=== PATIENT | male | born 1955 | race Caucasian/White ===

== ENCOUNTER 2018-11-30 13:08 | Outpatient (CLI) | payer OTHER ==
--- NOTE | 2018-12-02 02:37 | XRAY Report ---
Reason: CHEST PAIN, UNSPECIFIED Procedure Date: 11/30/2018 Accession Number: [id number] / [id number] Procedure: XRS - Chest 2 View X-Ray CPT Code: 91774 FULL RESULT: EXAM: CHEST RADIOGRAPHY EXAM DATE: 11/30/2018 01:21 PM. CLINICAL HISTORY: 2 episodes of left-sided chest pain that brought him to the floor. Unable to breathe. COMPARISON: None. TECHNIQUE: 2 views. A total of 3 exposures are provided for review. FINDINGS: Lungs/Pleura: The lungs are clear. No pneumothorax or pleural effusion. Mediastinum: Heart and mediastinal contours are within normal limits. Other: Multilevel generative change of the spine. IMPRESSION: No evidence of acute cardiopulmonary disease. RADIA
== END 2018-11-30 13:09 | disposition home or self-care (01) ==
LOC: DI.S 13:08
PROVIDERS: ATTEND Physician Assistant
DX: R07.9 Chest pain, unspecified (principal)
CPT/HCPCS: 36415; 71046; 85379; 93005

== ENCOUNTER 2018-11-30 15:26 | Outpatient (CLI) | payer OTHER | END 2018-11-30 15:27 | disposition home or self-care (01) | LOC: LAB 15:26 | PROVIDERS: ATTEND Physician Assistant | DX: R07.9 Chest pain, unspecified (principal) | CPT/HCPCS: 36415; 85379; 93005 ==

== ENCOUNTER 2021-08-05 13:43 | Outpatient (CLI) | payer MEDICARE ==
[2021-08-05] MEDS ORDERED: DIATR MEGLU/DIATRIZOATE SODIUM 120 ML BOTTLE PO ONE (15:14)
--- NOTE | 2021-08-05 17:23 | CT Report ---
PROCEDURE: Abdomen/Pelvis WO INDICATIONS: Left side abd pain TECHNIQUE: Noncontrast 5 mm thick sections acquired from the diaphragms to the symphysis. 5 mm coronal and sagi ttal reformats were then performed. For radiation dose reduction, the following was used: automated exposure control, adjustment of mA and/or kV according to patient size. COMPARISON: None. FINDINGS: Image quality: Excellent. ABDOMEN: Lung bases: 3 mm left lower lobe nodule series 4 image 11 is present. No priors are available for [employer] parison. Heart size is normal. Solid organs: Liver and spleen are normal in size. Gallbladder is unremarkable. Pancreas is normal in contours. No adrenal nodules. Kidneys are normal in size, without hydronephrosis or nephrolithi asis. Left renal parapelvic cysts are present. Peritoneum and bowel: Unenhanced bowel loops are nonobstructed. There is minimal appearance of thick ened small bowel loops within the left hemiabdomen. No free fluid or air. Moderate scattered stool. Nodes and vessels: No retroperitoneal or mesenteric adenopathy by size criteria. Aorta and inferior vena cava are normal in caliber. Miscellaneous: No ventral hernias. PELVIS: Genitourinary: Bladder wall thickness is normal. Miscellaneous: No inguinal hernias or adenopathy. Bones: No suspicious bony lesions. No vertebral body compression fractures. There is a left firmware engineer ior lateral 11th rib fracture. IMPRESSION: Minimal appearance of scattered thickened small bowel loops within the left hemiabdomen. This is over all nonspecific and can be related to enteritis. Subacute appearing left posterior lateral 11th rib fracture. Reviewed by: Olena Lipscomb MD on 08/05/2021 5:21 PM PDT Approved by: Olena Lipscomb MD on 08/05/2021 5:21 PM PDT Station ID: [id number]
== END 2021-08-05 13:44 | disposition home or self-care (01) ==
LOC: DI 13:43
PROVIDERS: ATTEND Internal Medicine
DX: S22.32XA Fracture of one rib, left side, initial encounter for closed fracture (principal); R10.9 Unspecified abdominal pain
CPT/HCPCS: 74176; Q9963

== ENCOUNTER 2022-01-08 08:00 | Outpatient (CLI) | payer MEDICARE, OTHER ==
--- NOTE | 2022-01-08 16:26 | XRAY Report ---
PROCEDURE: Chest 2 View X-Ray INDICATIONS: LEFT CHEST PAIN TECHNIQUE: 2 view(s) of the chest. COMPARISON: 12/01/2015. FINDINGS: Surgical changes and devices: None. Lungs and pleura: No pleural effusions or pneumothorax. Lungs are clear. Mediastinum: Mediastinal contours are normal. Heart size is normal. Bones and chest wall: No suspicious bony abnormalities. Soft tissues appear unremarkable. IMPRESSION: No acute cardiopulmonary pathology. Reviewed by: Jairo Solorio MD on 01/08/2022 4:25 PM PDT Approved by: Jairo Solorio MD on 01/08/2022 4:25 PM PDT Station ID: [id number]
== END 2022-01-08 08:01 | disposition home or self-care (01) ==
LOC: DI.S 08:00
PROVIDERS: ATTEND Physician Assistant
DX: R07.81 Pleurodynia (principal); Z87.81 Personal history of (healed) traumatic fracture

== ENCOUNTER 2022-06-02 12:35 | Outpatient (CLI) | payer MEDICARE, OTHER ==
--- NOTE | 2022-06-02 13:32 | XRAY Report ---
PROCEDURE: Lumbar Spine 2 View INDICATIONS: PAIN IN LOW BACK AND TIBIA TECHNIQUE: 3 views of the lumbar spine were acquired. COMPARISON: None. FINDINGS: Bones: 5 [id number] vertebrae are present. There is normal bony alignment. No vertebral body compression fractures. No suspicious bony lesions. There is some mild degenerative disc disease present L2-L3. Soft tissues: Overlying bowel gas pattern is normal. No suspicious soft tissue calcifications. IMPRESSION: 1. No evidence for acute osseous abnormality involving the lumbar spine. 2. Mild degenerative disc disease present L2-L3. Reviewed by: Juan Carlos Albert MD on 06/02/2022 1:31 PM PDT Approved by: Juan Carlos Albert MD on 06/02/2022 1:31 PM PDT Station ID: [id number]
--- NOTE | 2022-06-02 14:12 | XRAY Report ---
PROCEDURE: Hip w/Pelvis 2-3V LT INDICATIONS: PAIN IN LOW BACK AND LEFT HIP TECHNIQUE: AP pelvis with lateral view(s) of the left hip(s). COMPARISON: None. FINDINGS: Bones: No fractures or dislocations. Pelvic ring appears intact. No suspicious bony lesions. Nonu niform joint space narrowing of the left hip. No osteophytosis. Soft tissues: The visualized bowel gas pattern is normal. No suspicious soft tissue calcifications. IMPRESSION: Minimal left hip osteoarthritis. Reviewed by: Shane Augustin on 06/02/2022 2:10 PM PDT Approved by: Shane Augustin on 06/02/2022 2:10 PM PDT Station ID: [id number]
== END 2022-06-02 12:36 | disposition home or self-care (01) ==
LOC: DI.S 12:35
PROVIDERS: ATTEND Physician Assistant
DX: M51.36 Other intervertebral disc degeneration, lumbar region (principal); M16.12 Unilateral primary osteoarthritis, left hip

== ENCOUNTER 2022-09-10 07:07 | Outpatient (CLI) | payer MEDICARE, OTHER ==
[2022-09-10 15:10] LABS: BASOPHILS % (AUTO) 0.5 %; EOSINOPHILS # (AUTO) 0.2 10^3/uL (0.0-0.7); EOSINOPHILS % (AUTO) 3.1 %; HCT - HEMATOCRIT 39.6 % (42.0-52.0); HGB - HEMOGLOBIN 13.1 g/dL (14.0-18.0); LYMPHOCYTES # (AUTO) 1.9 10^3/uL (1.5-3.5); LYMPHOCYTES % (AUTO) 24.6 %; MEAN CORPUSCULAR HEMOGLOBIN 30.7 pg (27.0-31.0); MEAN CORPUSCULAR HGB CONC 33.1 g/dL (32.0-36.0); MEAN CORPUSCULAR VOLUME 92.7 fL (80.0-94.0); MEAN PLATELET VOLUME 9.5 fL (7.4-11.4); MONOCYTES # (AUTO) 0.8 10^3/uL (0.0-1.0); MONOCYTES % (AUTO) 10.1 %; NEUTROPHILS # (AUTO) 4.6 10^3/uL (1.5-6.6); NEUTROPHILS % (AUTO) 61.4 %; PLT - PLATELET COUNT 222 10^3/uL (130-450); RED BLOOD COUNT 4.27 10^6/uL (4.70-6.10); RED CELL DISTRIBUTION WIDTH 13.7 % (12.0-15.0); WHITE BLOOD COUNT 7.5 x10^3/uL (4.8-10.8)
[2022-09-10 15:50] LABS: ALBUMIN 3.7 g/dL (3.2-5.5); ALBUMIN/GLOBULIN RATIO 1.2 (1.0-2.2); ALKALINE PHOSPHATASE 56 IU/L (42-121); ALT ALANINE AMINOTRANSFERASE 20 IU/L (10-60); AST ASPARTATE AMINOTRANSFERASE 21 IU/L (10-42); BILIRUBIN,TOTAL 0.9 mg/dL (0.2-1.0); BUN - BLOOD UREA NITROGEN 16 mg/dL (6-20); CALCIUM 8.8 mg/dL (8.5-10.3); CARBON DIOXIDE - CO2 26 mmol/L (21-32); CHLORIDE 110 mmol/L (101-111); CHOL/HDL RATIO 2.6 (<5.0); CHOLESTEROL 160 mg/dL; CREATININE 0.9 mg/dL (0.6-1.2); GFR - MDRD 84 (>89); GLUCOSE 100 mg/dL (70-100); HDL CHOLESTEROL 61 mg/dL; LDL CHOLESTEROL,CALCULATED 91 mg/dL; LDL/HDL RATIO 1.5 (<3.6); SODIUM 141 mmol/L (135-145); TOTAL PROTEIN 6.8 g/dL (6.7-8.2); TRIGLYCERIDES 40 mg/dL; VLDL CHOLESTEROL 8 mg/dL
[2022-09-11 04:08] LABS: HCV AB Non Reactive (Non Reactive)
== END 2022-09-10 07:08 | disposition home or self-care (01) ==
LOC: LAB.S 07:07
PROVIDERS: ATTEND Nurse Practitioner Family
DX: Z79.899 Other long term (current) drug therapy (principal); Z13.6 Encounter for screening for cardiovascular disorders; Z72.89 Other problems related to lifestyle
CPT/HCPCS: 36415; 80053; 80061; 83721; 85025; 86803

== ENCOUNTER 2023-01-11 13:48 | Outpatient (CLI) | payer MEDICARE, OTHER ==
[2023-01-11 19:56] LABS: BASOPHILS % (AUTO) 0.6 %; EOSINOPHILS # (AUTO) 0.2 10^3/uL (0.0-0.7); EOSINOPHILS % (AUTO) 3.1 %; HCT - HEMATOCRIT 43.4 % (42.0-52.0); HGB - HEMOGLOBIN 14.2 g/dL (14.0-18.0); LYMPHOCYTES # (AUTO) 1.8 10^3/uL (1.5-3.5); LYMPHOCYTES % (AUTO) 25.7 %; MEAN CORPUSCULAR HEMOGLOBIN 31.3 pg (27.0-31.0); MEAN CORPUSCULAR HGB CONC 32.7 g/dL (32.0-36.0); MEAN CORPUSCULAR VOLUME 95.8 fL (80.0-94.0); MEAN PLATELET VOLUME 9.6 fL (7.4-11.4); MONOCYTES # (AUTO) 0.5 10^3/uL (0.0-1.0); MONOCYTES % (AUTO) 6.8 %; NEUTROPHILS # (AUTO) 4.5 10^3/uL (1.5-6.6); NEUTROPHILS % (AUTO) 63.7 %; PLT - PLATELET COUNT 235 10^3/uL (130-450); RED BLOOD COUNT 4.53 10^6/uL (4.70-6.10); RED CELL DISTRIBUTION WIDTH 13.2 % (12.0-15.0); WHITE BLOOD COUNT 7.1 x10^3/uL (4.8-10.8)
[2023-01-11 20:03] LABS: PT - PROTHROMBIN TIME 11.2 secs (9.9-12.6)
[2023-01-11 20:09] LABS: CREATININE 0.9 mg/dL (0.6-1.3); POTASSIUM 4.5 mmol/L (3.5-4.5)
== END 2023-01-11 13:49 | disposition home or self-care (01) ==
LOC: LAB.S 13:48
DX: K40.90 Unilateral inguinal hernia, without obstruction or gangrene, not specified as recurrent (principal)
CPT/HCPCS: 36415; 80048; 85025; 85610

== ENCOUNTER 2023-11-22 12:49 | Outpatient (CLI) | payer MEDICARE, OTHER ==
--- NOTE | 2023-11-22 13:17 | Sleep Patient Instructions ---
Sleep Center Visit Summary - Patient Visit Information Reason for Visit: Initial consult for evaluation of sleep disordered breathing and other sleep issues. - Patient Instructions Instructions Attached: Sleep Study Additional Instructions: You will be completing a sleep study, either an in-lab polysomnography (PSG) or home sleep study (HST). You will follow-up in the sleep care office after the sleep study is completed to hear the results and talk about therapy, if needed. You will be called by our office staff to schedule this appointment, but you may contact us with any questions. - Clinic Information Contact: [facility] [address] [place] [address] [email or web address] T: [phone]
--- NOTE | 2023-11-22 13:21 | SLEEP CARE CONSULTATION ---
Information from patient questionnaire entered by Sindhu Chacon. I have reviewed and concur with the information entered by Sindhu Chacon. This document represents the service I personally performed and the decisions made by me, Cynthia Bay ARNP. History of Present Illness Service Date and Time: 11/22/2023 1249 Reason for Visit: New patient Chief Complaint: reports: Insomnia, Fatigue, Frequent awakenings at night Date of Onset: 5YRS BUT GETTING WORSE Usual bedtime: 2230 Time it takes to fall asleep: 1-3HRS Snores at night: Yes Observed to quit breathing while asleep: No Sleeps alone due to snoring: No Number of times waking at night: 3-4 Reasons for waking at night: reports: Bathroom, Other (UNKNOWN). denies: Choking, Gasping for air Toss, Turn, or Twitch while sleeping: Yes Recalls having dreams: Yes Usually gets out of bed at: 2442-1667 Feels refreshed in the morning: No Morning headache: No Sleepy or fatigued during the day: Yes Ever fallen asleep while driving: No Takes day naps: Yes Dreams during day naps: No Prior sleep studies: No Additional HPI information: I had the pleasure of seeing RJ WALKER today regarding the possibility of him having a sleep disorder. His current complaints are insomnia, fatigue and frequent night awakenings. He says he has very "fitful" sleep. He has a Fitbit and it shows a lot of broken sleep. He does not feel he gets a good sleep. He has difficulty falling asleep and has used a sleep aide in the past. He has been told that he snores. He says he will fall asleep when sitting still in a chair depending on what he is doing. He has moved his arms in his sleep, but no sleep walking. 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 Patient is and lives in [place]. Have you smoked in the past 12 months: No Alcohol use: Yes Alcohol amount and frequency: MODERATE 2 TIMES A WEEK Caffeine use: Yes Caffeine amount and frequency: ONCE DAILY ONE CUP Family History Family history of sleep disordered breathing: No Allergies and Home Medications Known drug allergies: Yes ( LISTED) Drug allergies reviewed: Yes Home medication list reviewed: Yes (as listed) Allergy and home medication list: Allergies Penicillins Allergy (Verified 11/22/23 12:51) meperidine [From Demerol] Adverse Reaction (Verified 11/22/23 13:11) Emesis Home Medications Ibuprofen See Rx Instructions .ROUTE .COMPLEX 11/22/23 [History] Lisinopril [Zestril] See Rx Instructions .ROUTE .COMPLEX 11/22/23 [History] Turmeric See Rx Instructions .ROUTE .COMPLEX 11/22/23 [History] glucosamine HCL [Glucosamine HCl] See Rx Instructions .ROUTE .COMPLEX 11/22/23 [History] Review of Systems Weight gain over past 5 years: 0 Weight loss over past 5 years: 0 Cardiovascular: reports: high blood pressure Gastrointestinal: denies: heartburn Neurological: reports: disorientation. denies: headaches Psychiatric: denies: anxiety, depression Ear/Nose/Throat: denies: tonsillectomy Musculoskeletal: reports: joint pain, neck pain, back pain Physical Exam Vital signs obtained and entered by: SINDHU Mathis MA Blood Pressure: 154/84 (LEFT ARM) Cuff size: long Heart Rate: 51 O2 Saturation: 100 Height: 6 ft 1.75 in Weight: 201 lb 3.2 oz Body Mass Index: 25.9 BMI Classification: Overweight Neck circumference: 16 Nostrils: patent to airflow Mouth and throat: narrow oropharynx Soft palate: long Hard palate: normal Uvula: normal Uvula visualization: 0% Mallampati Class IV Tongue: enlarged in size with teeth millard on lateral edges Tonsils: small Neck: normal w/o lymphadenopathy or thyromegaly Heart: regular rate and rhythm Lungs: clear bilaterally Impression and Plan 1. Suspected Obstructive Sleep Apnea-Hypopnea Syndrome, as suggested by a history of loud and irregular snoring, frequent awakening during the night, unrefreshed sleep and cognitive impairment. Narrow oropharynx and obesity are common predisposing factors for obstructive sleep apnea-hypopnea syndrome. I recommend proceeding to polysomnography to confirm the diagnosis and to assess severity. If the patient has significant sleep disordered breathing, a manual CPAP titration study will also be performed to find the optimal treatment pressure. I informed the patient of what the sleep studies involve and after some discussion, obtained agreement to proceed. The pathophysiology of obstr uctive sleep apnea-hypopnea syndrome was discussed with the patient and health risks of cardiovascular and cerebrovascular disease if not treated. Risks of drowsy driving discussed in detail and patient advised to avoid long distance driving and to puller through at the first sign of drowsiness. Patient agreed to plan. * Schedule polysomnography +- manual CPAP titration study and return in 1-2 weeks after the study to discuss result and initiate therapy. * Avoid long distance driving or driving when feeling sleepy. * Avoid alcohol, sedative and muscle relaxant around bedtime. * Attempt to lose weight. * Review instructions provided by trained office staff on how to prepare for the sleep study. * Return for follow-up after sleep study completed. Counseling Topics: Weight control Plan: sleep study and follow up Visit Type: In Office Time Spent with Patient (minutes): 23 Provider Statement: I spent 100% of the Face to Face Visit with the patient with greater than 50% spent counseling the patient and coordination of care.
[2023-11-22 13:29] VITALS: BP 154/84; O2SAT 100
== END 2023-11-22 12:50 | disposition home or self-care (01) ==
LOC: SC 12:49
PROVIDERS: ATTEND Nurse Practitioner Family
DX: G47.8 Other sleep disorders (principal); R41.89 Other symptoms and signs involving cognitive functions and awareness; R06.83 Snoring
CPT/HCPCS: 99202; G0463; 99212